=== PATIENT | male | born 1960 | race Caucasian/White ===

== ENCOUNTER 2021-07-05 09:46 | Emergency (ER) | payer BC ==
[2021-07-05 10:12] LABS: Bilirubin Negative (Negative); Blood, Urine Negative (Negative); Clarity Clear (Clear); Glucose, Urine (Dipstick) Normal (Negative); Ketone, Urine Negative (Negative); Leukocyte Negative Leu/uL (Negative); Nitrite Negative (Negative); Protein, Urine (Dipstick) Negative (Neg-Trace); Specific Gravity, Urine 1.018 (1.002-1.036); Urobilinogen Normal mg/dL (Less than 2); pH, Urine 7.5 (5.0-9.0)
[2021-07-05] MEDS ORDERED: Orphenadrine Citrate 60 MG/2 ML VIAL IM SCH (11:30)
== END 2021-07-05 11:50 | disposition home or self-care (01) ==
LOC: ERS 09:46
DX: M54.50 Low back pain, unspecified (principal); N18.2 Chronic kidney disease, stage 2 (mild)
CPT/HCPCS: 81003; 96372; 99283; J2360